=== PATIENT | female | born 1945 | race Two or more races ===

== ENCOUNTER 2023-12-14 13:17 | Outpatient (CLI) | payer OTHER | END 2023-12-14 13:23 | disposition home or self-care (01) | LOC: RAD 13:17 | DX: M25.562 Pain in left knee (principal); M25.462 Effusion, left knee ==

== ENCOUNTER 2024-01-25 11:14 | Outpatient (CLI) | payer OTHER | END 2024-01-25 11:20 | disposition home or self-care (01) | LOC: MAMO-SONO 11:14 | PROVIDERS: ATTEND General Practice | DX: N64.4 Mastodynia (principal); Z12.31 Encounter for screening mammogram for malignant neoplasm of breast ==

== ENCOUNTER 2024-02-15 13:17 | Outpatient (CLI) | payer OTHER | END 2024-02-15 13:19 | disposition home or self-care (01) | LOC: NUCLEAR 13:17 | PROVIDERS: ATTEND General Practice | DX: M81.0 Age-related osteoporosis without current pathological fracture (principal) ==